=== PATIENT | male | born 1960 | race Caucasian/White ===

== ENCOUNTER 2024-01-16 04:09 | Emergency (ER) | payer BC ==
[2024-01-16 04:37] VITALS: BP 124/51; PULSE 56
[2024-01-16] MEDS: Meclizine 25 MG Tab PO ONE (05:24)
== END 2024-01-16 05:50 | disposition home or self-care (01) ==
LOC: JD.ED 04:09
DX: H81.10 Benign paroxysmal vertigo, unspecified ear (principal); Z79.01 Long term (current) use of anticoagulants; Z79.899 Other long term (current) drug therapy
CPT/HCPCS: 93005; 99284; A9270